=== PATIENT | female | born 1965 | race Caucasian/White ===

== ENCOUNTER 2017-06-04 01:19 | Emergency (ER) | payer SELFPAY ==
[~2017-06-04] VITALS: Ht 160 cm; Wt 72.6 kg
[2017-06-04] MEDS ORDERED: Ketorolac 60mg Inj IM ONE (02:00)
[2017-06-04] MEDS ORDERED: oxyCODONE HCL/Acetaminophen 5/325mg ORAL ONE ×2 (02:00→03:30)
--- NOTE | 2017-06-04 03:26 | Emergency Room Report ---
History of Present Illness General Chief Complaint: Lower Extremity Injury Source: Patient Present Illness HPI Patient fell down "a full flight" of stairs at 14:00. Took tylenol without help. Pain is severe. Pain mostly in R lower leg - knee and ankle. She is not sure if she lost consciousness. She did not tumble. She has pain throughout her body at this time. No chest pain or abdominal pain. No dyspnea. Pain rated at 10/10 "the worst pain I've ever had". No bruises or bleeding. Denies fevers, cough, NVD, dysuria. Ambulated with limp through afternoon and evening. Allergies: Coded Allergies: ACETAMINOPHEN (Verified Allergy, Mild, 06/04/17) HYDROCODONE (Verified Allergy, Mild, 06/04/17) MORPHINE (Verified Allergy, Mild, 06/04/17) Patient History Past Medical History: see triage record Social History: Reports: smoking Social History Narrative with daughter Now: No Reviewed Nursing Documentation: PMH: Agreed, PSxH: Agreed Nursing Documentation-PMH Past Medical History: No Stated History Review of Systems All Other Systems: negative except mentioned in HPI Physical Exam Vital Signs Date Time Temp Pulse Resp B/P (MAP) Pulse Ox O2 Delivery O2 Flow Rate FiO2 06/04/17 01:26 97.9 116 22 146/111 96 Room Air Sp02 EP Interpretation: reviewed, normal General Appearance: well appearing, no apparent distress, GCS 15 Head: normocephalic, atraumatic Eyes: bilateral eye normal inspection, bilateral eye PERRL, bilateral eye EOMI ENT: moist mucus membranes Neck: supple Respiratory: chest non-tender, lungs clear, normal breath sounds Cardiovascular #1: regular rate, rhythm Cardiovascular #2: 2+ radial (R) Gastrointestinal: normal inspection, normal bowel sounds, non tender, no mass, non-distended Musculoskeletal: digits/nails normal, normal range of motion, no calf tenderness, pelvis stable, other - knee and ankle ligaments stable without swelling or effusion, tender - all of back, no bone tenderness, muscle tightness with tenderness, no step off Neurologic: alert, oriented x3, grossly normal Psychiatric: other - pressuring for pain shot Skin: normal inspection, normal color, no rash, well hydrated Medical Decision Making Diagnostic Impression: Primary Impression: Fall Qualified Codes: W19.XXXA - Unspecified fall, initial encounter Additional Impression: Contusion of right leg Qualified Codes: S80.11XA - Contusion of right lower leg, initial encounter ER Course Patient presents post fall down stairs. Ddx: fracture, contusions, muscle strain, sprains. Xrays of leg indicated. Analgesia ordered. Patient immediately demanding "shot of Dilaudid". Discussed that I will give analgesia. Xrays without fx or abnormalities. Still c/o pain - initially stated "no different". Percocet repeated. Aces applied by RN. Position and neurovasc normal as checked by me and normal. Improved. Discussed crutches, felt better without. Patient stable for outpatient observation and treatment. Other X-Ray Diagnostic Results Other X-Ray Diagnostic Results : X-Ray ordered: tib fib # of Views/Limited Vs Complete: 4 View Indication: Pain Interpretation: no dislocation, no soft tissue swelling, no fractures, other - djd Impression: No acute disease Electronically Signed by: Wing Skaggs MD Last Vital Signs Date Time Temp Pulse Resp B/P (MAP) Pulse Ox O2 Delivery O2 Flow Rate FiO2 06/04/17 03:45 97.9 94 22 134/98 96 Room Air Status: improved Disposition: HOME, SELF-CARE Condition: Improved Scripts Methocarbamol* (ROBAXIN*) 500 Mg Tablet 500 MG PO TID, #10 TAB 0 Refills Prov: Wing Skaggs M.D. 06/04/17 Tramadol Hcl* (ULTRAM*) 50 Mg Tablet 50 MG ORAL Q6H Y for For Pain, #12 TAB 0 Refills Prov: Wing Skaggs M.D. 06/04/17 Referrals: NON PHYSICIAN (PCP) Wing Skaggs M.D. Jun 04, 2017 03:26
[2017-06-04] MEDS ORDERED: TRAMADOL HCL50 MG ORAL (03:28)
[2017-06-04] MEDS ORDERED: ROBAXIN500 MG PO (03:31)
[2017-06-04 03:45] VITALS: BP 134/98
--- NOTE | 2017-06-04 10:24 | Diagnostic Imaging Report ---
Indication: Pain Comparison: None Findings: Two views of the right tibia and fibula were obtained. No acute fracture, malalignment, or periosteal reaction are identified. Soft tissues are unremarkable. Impression: Negative examination of the tibia and fibula
== END 2017-06-04 03:47 | disposition home or self-care (01) ==
LOC: EMR 01:48
DX: S80.11XA Contusion of right lower leg, initial encounter (principal); W10.9XXA Fall (on) (from) unspecified stairs and steps, initial encounter; Y92.9 Unspecified place or not applicable; Z88.6 Allergy status to analgesic agent; F17.200 Nicotine dependence, unspecified, uncomplicated
CPT/HCPCS: 96372; 99284